=== PATIENT | male | born 1985 | race Caucasian/White ===

== ENCOUNTER 2020-07-16 01:37 | Emergency (ER) | payer MEDICAID ==
[~2020-07-16] VITALS: Ht 177.8 cm; Wt 70.0 kg
[2020-07-16] MEDS ORDERED: naloxone 2mg/2ml inj IV STA (01:47)
[2020-07-16 02:40] LABS: BASOPHILS % (AUTO) 0.3 % (0-1); EOSINOPHILS # (AUTO) 0.2 X10'3 (0-0.9); EOSINOPHILS % (AUTO) 2.3 % (0-6); HEMATOCRIT 42.4 % (42.0-52.0); HEMOGLOBIN 14.2 g/dl (14.0-17.9); LYMPHOCYTES # (AUTO) 1.4 X10'3 (1.1-4.8); LYMPHOCYTES % (AUTO) 19.1 % (21-51); MEAN CORPUSCULAR HEMOGLOBIN 31.6 PG (27.0-31.0); MEAN CORPUSCULAR HGB CONC 33.5 g/dL (33.0-36.5); MEAN CORPUSCULAR VOLUME 94.5 FL (78-98); MEAN PLATELET VOLUME 8.4 FL (7.4-10.4); MONOCYTES # (AUTO) 1.1 X10'3 (0-0.9); MONOCYTES % (AUTO) 14.4 % (2-12); NEUTROPHILS # (AUTO) 4.8 X10'3 (1.8-7.7); NEUTROPHILS % (AUTO) 63.9 % (42-75); PLATELET COUNT 236 X10'3 (140-440); RED BLOOD COUNT 4.49 X10'6 (4.70-6.10); RED CELL DISTRIBUTION WIDTH 12.9 % (11.5-14.5); WHITE BLOOD COUNT 7.5 X10'3 (4.5-11.0)
[2020-07-16 02:49] LABS: ALANINE AMINOTRANSFERASE 21 U/L (12-78); ALBUMIN 3.8 G/DL (3.4-5.0); ALKALINE PHOSPHATASE 81 IU/L (46-116); ANION GAP 9 (8-16); ASPARTATE AMINO TRANSFERASE 18 U/L (10-37); BILIRUBIN,TOTAL 0.3 MG/DL (0.1-1.0); BLOOD UREA NITROGEN 18 MG/DL (7-18); BUN/CREATININE RATIO 13.1 (5.4-32.0); CALCIUM 9.3 MG/DL (8.5-10.1); CHLORIDE 104 MMOL/L (99-107); CREATININE 1.37 MG/DL (0.60-1.10); GLUCOSE 127 MG/DL (70-104); SODIUM 142 MMOL/L (135-145); TOTAL CARBON DIOXIDE 29.3 MMOL/L (24-32); TOTAL PROTEIN 7.5 G/DL (6.4-8.2); eGFR 58 ML/MIN
[2020-07-16 03:04] LABS: ACETAMINOPHEN < 2.0 UG/ML (10-30); ETHANOL < 0.010 GM/DL (0.0-0.010)
[2020-07-16 03:43] VITALS: BP 111/65
== END 2020-07-16 04:02 | disposition home or self-care (01) ==
LOC: ER 01:38
DX: T40.1X1A Poisoning by heroin, accidental (unintentional), initial encounter (principal); R94.6 Abnormal results of thyroid function studies; Z72.89 Other problems related to lifestyle; Y92.89 Other specified places as the place of occurrence of the external cause
CPT/HCPCS: 36415; 80053; 80320; 80329; 84443; 85025; 99283

== ENCOUNTER 2020-10-11 13:26 | Emergency (ER) | payer MEDICAID ==
[~2020-10-11] VITALS: Ht 182.9 cm; Wt 70.5 kg
[2020-10-11 13:49] VITALS: BP 134/84
== END 2020-10-11 13:56 ==
LOC: ER 13:27
DX: Z02.89 Encounter for other administrative examinations (principal); F15.129 Other stimulant abuse with intoxication, unspecified; F17.200 Nicotine dependence, unspecified, uncomplicated; Z72.89 Other problems related to lifestyle; V87.7XXA Person injured in collision between other specified motor vehicles (traffic), initial encounter; Y93.89 Activity, other specified; Y92.89 Other specified places as the place of occurrence of the external cause; Y99.8 Other external cause status
CPT/HCPCS: 99283

== ENCOUNTER 2020-12-14 00:32 | Emergency (ER) | payer MEDICAID ==
[~2020-12-14] VITALS: Ht 180.3 cm; Wt 70.0 kg
[2020-12-14] MEDS ORDERED: normal saline 1000ML IV soln IV ONE (00:40)
[2020-12-14 01:26] LABS: BASOPHILS % (AUTO) 0.2 % (0-1); EOSINOPHILS # (AUTO) 0.1 X10'3 (0-0.9); EOSINOPHILS % (AUTO) 0.5 % (0-6); HEMATOCRIT 22.6 % (42.0-52.0); HEMOGLOBIN 7.7 g/dl (14.0-17.9); LYMPHOCYTES # (AUTO) 0.9 X10'3 (1.1-4.8); MEAN CORPUSCULAR HEMOGLOBIN 30.8 PG (27.0-31.0); MEAN CORPUSCULAR HGB CONC 34.3 g/dL (33.0-36.5); MEAN CORPUSCULAR VOLUME 89.9 FL (78-98); MEAN PLATELET VOLUME 7.6 FL (7.4-10.4); MONOCYTES # (AUTO) 1.7 X10'3 (0-0.9); MONOCYTES % (AUTO) 14.5 % (2-12); NEUTROPHILS # (AUTO) 9.1 X10'3 (1.8-7.7); NEUTROPHILS % (AUTO) 76.8 % (42-75); PLATELET COUNT 569 X10'3 (140-440); RED BLOOD COUNT 2.51 X10'6 (4.70-6.10); RED CELL DISTRIBUTION WIDTH 14.8 % (11.5-14.5); WHITE BLOOD COUNT 11.8 X10'3 (4.5-11.0)
[2020-12-14 01:40] LABS: ALANINE AMINOTRANSFERASE 54 U/L (12-78); ALBUMIN 1.9 G/DL (3.4-5.0); ALBUMIN/GLOBULIN RATIO 0.5 (1.1-1.5); ALKALINE PHOSPHATASE 81 IU/L (46-116); ANION GAP 7 (8-16); ASPARTATE AMINO TRANSFERASE 82 U/L (10-37); BILIRUBIN,TOTAL 0.4 MG/DL (0.1-1.0); BLOOD UREA NITROGEN 14 MG/DL (7-18); BUN/CREATININE RATIO 13.7 (5.4-32.0); CALCIUM 7.3 MG/DL (8.5-10.1); CHLORIDE 102 MMOL/L (99-107); CREATININE 1.02 MG/DL (0.60-1.10); ETHANOL < 0.010 GM/DL (0.0-0.010); GLUCOSE 120 MG/DL (70-104); POTASSIUM 4.1 MMOL/L (3.5-5.1); SODIUM 135 MMOL/L (135-145); TOTAL CARBON DIOXIDE 25.7 MMOL/L (24-32); eGFR 82 ML/MIN
[2020-12-14 03:39] VITALS: BP 103/67
[2020-12-14] MEDS ORDERED: HYDR-3965 PO (04:19)
== END 2020-12-14 04:34 | disposition home or self-care (01) ==
LOC: ER 00:32
DX: T81.9XXA Unspecified complication of procedure, initial encounter (principal); R71.0 Precipitous drop in hematocrit; D64.89 Other specified anemias; F15.10 Other stimulant abuse, uncomplicated; Z20.822 Contact with and (suspected) exposure to COVID-19
CPT/HCPCS: 36415; 80053; 80320; 83605; 84145; 85025; 87040; 87635; 93005; 99284; C9803; J7030

== ENCOUNTER 2021-02-21 05:53 | Inpatient (IN) | payer MEDICAID ==
[~2021-02-21] VITALS: Ht 175.3 cm; Wt 75.0 kg
[2021-02-21] VITALS (24 sets, daily range): BP systolic 92–116; BP diastolic 48–69
[2021-02-21] MEDS ORDERED: metroNIDAZOLE-Flagyl 500mg/NS 100 ML IV STA (06:11)
[2021-02-21] MEDS ORDERED: morphine 10mg/ml inj. IV ONE (06:15)
[2021-02-21] MEDS ORDERED: VANCOMYCIN 1,500MG inj. 1,500 MG in normal saline 500ml IV soln 300 ML IV ONE (06:15)
[2021-02-21] MEDS ORDERED: cefepime 1GM/NS ADD-VANTAGE 100 ML IV ONE (06:15)
[2021-02-21] MEDS ORDERED: normal saline 1000ml 1,000 ML IV ONE (06:15)
[2021-02-21] MEDS ORDERED: cefepime 1GM in D5W 50mL 50 ML IV ONE (06:17)
[2021-02-21 06:35] LABS: EOSINOPHILS # (AUTO) 0.1 X10'3 (0-0.9); HEMOGLOBIN 7.8 g/dl (14.0-17.9); LYMPHOCYTES # (AUTO) 2.3 X10'3 (1.1-4.8); MEAN PLATELET VOLUME 6.9 FL (7.4-10.4); MONOCYTES # (AUTO) 2.7 X10'3 (0-0.9); MONOCYTES % (AUTO) 9.1 % (2-12); RED CELL DISTRIBUTION WIDTH 16.8 % (11.5-14.5)
[2021-02-21 06:38] LABS: BASOPHILS # (AUTO) 0.1 X10'3 (0-0.2); BASOPHILS % (AUTO) 0.2 % (0-1); EOSINOPHILS % (AUTO) 0.5 % (0-6); HEMATOCRIT 24.1 % (42.0-52.0); LYMPHOCYTES % (AUTO) 7.9 % (21-51); MEAN CORPUSCULAR HEMOGLOBIN 26.9 PG (27.0-31.0); MEAN CORPUSCULAR HGB CONC 32.3 g/dL (33.0-36.5); MEAN CORPUSCULAR VOLUME 83.3 FL (78-98); NEUTROPHILS # (AUTO) 24.1 X10'3 (1.8-7.7); NEUTROPHILS % (AUTO) 82.3 % (42-75); PLATELET COUNT 818 X10'3 (140-440); RED BLOOD COUNT 2.89 X10'6 (4.70-6.10)
[2021-02-21 06:44] LABS: WHITE BLOOD COUNT 29.2 X10'3 (4.5-11.0)
[2021-02-21 06:53] LABS: ALANINE AMINOTRANSFERASE 13 U/L (12-78); ALBUMIN 1.8 G/DL (3.4-5.0); ALBUMIN/GLOBULIN RATIO 0.4 (1.1-1.5); ALKALINE PHOSPHATASE 73 IU/L (46-116); ANION GAP 6 (8-16); ASPARTATE AMINO TRANSFERASE 12 U/L (10-37); BILIRUBIN,TOTAL 0.1 MG/DL (0.1-1.0); BLOOD UREA NITROGEN 13 MG/DL (7-18); BUN/CREATININE RATIO 13.1 (5.4-32.0); CHLORIDE 103 MMOL/L (99-107); CREATININE 0.99 MG/DL (0.60-1.10); GLUCOSE 172 MG/DL (70-104); POTASSIUM 4.4 MMOL/L (3.5-5.1); SODIUM 135 MMOL/L (135-145); TOTAL CARBON DIOXIDE 26.1 MMOL/L (24-32); TOTAL PROTEIN 5.9 G/DL (6.4-8.2); eGFR 85 ML/MIN
[2021-02-21 07:09] LABS: ETHANOL < 0.010 GM/DL (0.0-0.010); MAGNESIUM 1.8 MG/DL (1.5-2.4)
[2021-02-21 07:14] LABS: APTT 26 SECONDS (22-32)
[2021-02-21] MEDS ORDERED: iohexol 350MG/ML 100ml bottle IV ONE (07:25)
[2021-02-21 07:49] LABS: ANISOCYTOSIS 1+; PLATELET ESTIMATE INCREASED; TOTAL CELLS COUNTED 100
[2021-02-21 12:05] LABS: URINE AMPHETAMINE SCREEN POSITIVE (Neg); URINE BARBITUATE SCREEN NEGATIVE (Neg); URINE BENZODIAZEPINES SCREEN NEGATIVE (Neg); URINE CANNABINOID SCREEN POSITIVE (Neg); URINE COCAINE SCREEN NEGATIVE (Neg); URINE METHADONE SCREEN NEGATIVE (Neg); URINE OPIATE SCREEN POSITIVE (Neg); URINE PHENCYCLIDINE SCREEN NEGATIVE (Neg)
[2021-02-21] MEDS ORDERED: fentaNYL/PF 50MCG/1 ML 2ML syringe ONE (12:06)
[2021-02-21] MEDS ORDERED: vancomycin 1,000mg inj ONE (12:42)
[2021-02-21] MEDS ORDERED: propofol inj 20 ML IV ONE (12:58)
[2021-02-21] MEDS ORDERED: rocuronium 10mg/ml inj IV ONE (12:59)
--- NOTE | 2021-02-21 13:10 | NUR ---
Received from OR via , accompanied by Anesthesiologist and report given by Anesthesiolgist. PATIENT WAKING UP , DENIES PAIN, V/S WNL, CSM INTACT, LARGE DRESSING AROUND RIGHT CALF CDI WITH +4 EDEMA AND DOPLAR PEDAL PULSES, WARM FOOT AND TOES WITH EATING DISORDER SPECIALIST<2SEC
[2021-02-21] MEDS ORDERED: magnesium 4gm in 100ml NS 100 ML IV PRN (13:55)
[2021-02-21] MEDS: cefepime 1GM in D5W 50mL 50 ML IV SCH ×2 (13:55→20:13)
[2021-02-21] MEDS ORDERED: morphine 2 MG/ML inj. syringe IV PRN (13:55)
[2021-02-21] MEDS ORDERED: HYDROcodone/acetaminophen 5mg/325mg tablet PO PRN (13:55)
[2021-02-21] MEDS ORDERED: bisacodyl 10mg suppository rectal RC PRN (13:55)
[2021-02-21] MEDS ORDERED: potassium Cl 20 mEq SR tablet PO PRN ×2 (13:55)
[2021-02-21] MEDS ORDERED: magnesium 2GM in 50ml NS 50 ML IV PRN (13:55)
[2021-02-21] MEDS ORDERED: acetaminophen 325mg tablet PO PRN ×2 (13:55)
[2021-02-21] MEDS ORDERED: acetaminophen 650mg rectal suppository RC PRN (13:55)
[2021-02-21] MEDS ORDERED: potassium CL 10mEq/100ml bag 100 ML IV PRN (13:55)
[2021-02-21] MEDS ORDERED: mag hydrox/Alum hydrox/simeth 30ml oral suspension PO PRN (13:55)
[2021-02-21] MEDS ORDERED: magnesium Cl slow-release 64mg tablet PO PRN (13:55)
[2021-02-21] MEDS ORDERED: ondansetron/PF 4mg/2ml inj IV PRN (13:55)
[2021-02-21] MEDS ORDERED: magnesium hydroxide 30ml (MOM) UD suspension PO PRN (13:55)
[2021-02-21 14:39] LABS: HEMOGLOBIN A1C 5.4 % (4.5-6.2)
--- NOTE | 2021-02-21 14:50 | NUR ---
PATIENT A&OX4 , DENIES PAIN, V/S WNL, CSM INTACT, LARGE DRESSING AROUND RIGHT CALF CDI WITH +4 EDEMA AND DOPPLAR PEDAL PULSES, WARM FOOT AND TOES WITH TICK ERADICATOR<2SEC, 18G LAC, PATIENT TAKEN TO 314 WITH ALL BELONGINGS AND HOOKED UP TO MONITORS IN ROOM AND REPORT GIVEN TO RN WHO HAS TAKEN OVER PATIENT CARE.
[2021-02-21 15:11] LABS: CLARITY,URINE CLEAR (Clear); COLOR,URINE YELLOW (Yellow); GLUCOSE, URINE NEGATIVE (Neg); KETONES,URINE NEGATIVE (Neg); LEUKOCYTE ESTERASE ,URINE NEGATIVE (Neg); NITRITES, URINE NEGATIVE (Neg); OCCULT BLOOD,URINE NEGATIVE (Neg); PROTEIN,URINE NEGATIVE (Neg); UROBILINOGEN,URINE 0.2 E.U/dL (0.2-1.0)
[2021-02-21] MEDS: normal saline 1000ml 1,000 ML IV SCH ×2 (15:12→21:55)
[2021-02-21 15:15] LABS: UA COLLECTION TYPE NON-SPECIFIED
[2021-02-21] MEDS: morphine 2 MG/ML inj. syringe IV PRN ×2 (15:17→21:16)
[2021-02-21] MEDS: vancomycin/NS 1 GM ADD-VANTAGE 250 ML IV SCH ×2 (15:44→23:11)
[2021-02-21] MEDS: clindamycin 600mg/D5W 50ml 50 ML IV SCH ×2 (17:20→21:18)
--- NOTE | 2021-02-21 18:35 | NUR ---
Patient in room MED 312. I have received report from Lorna DOE and had the opportunity to ask questions and assume patient care.
[2021-02-21] MEDS: K and/or MAG REPLACEMENT MC SCH (20:00)
[2021-02-21] MEDS ORDERED: FLU VACC QS2021-22(6MOS UP)/PF 60 MCG/0.5 ML SYRINGE IM ONE (20:00)
[2021-02-21] MEDS: HYDROcodone/acetaminophen 10/325mg tab PO PRN (20:07)
[2021-02-21] MEDS: docusate sod 100mg capsule PO SCH (20:10)
[2021-02-21] MEDS: heparin, porcine 5000 units/ml vial SQ SCH (20:13)
--- NOTE | 2021-02-21 20:15 | NUR ---
Patient does not want his flu shot at this time and said, "I have been poked with enough needles today."
[2021-02-22] VITALS (10 sets, daily range): BP systolic 101–120; BP diastolic 56–80
[2021-02-22] MEDS: HYDROcodone/acetaminophen 10/325mg tab PO PRN ×4 (00:25→12:21)
[2021-02-22] MEDS: morphine 2 MG/ML inj. syringe IV PRN ×4 (02:13→16:08)
[2021-02-22] MEDS: clindamycin 600mg/D5W 50ml 50 ML IV SCH ×4 (02:14→19:47)
[2021-02-22] MEDS: normal saline 1000ml 1,000 ML IV SCH ×3 (03:55→22:20)
--- NOTE | 2021-02-22 06:38 | NUR ---
Problems reprioritized. Patient report given, questions answered & plan of care reviewed with Maria Dolores DOE.
[2021-02-22 06:48] LABS: BASOPHILS # (AUTO) 0.1 X10'3 (0-0.2); BASOPHILS % (AUTO) 0.5 % (0-1); EOSINOPHILS # (AUTO) 0.1 X10'3 (0-0.9); EOSINOPHILS % (AUTO) 0.6 % (0-6); LYMPHOCYTES # (AUTO) 1.6 X10'3 (1.1-4.8); LYMPHOCYTES % (AUTO) 14.5 % (21-51); MEAN CORPUSCULAR HEMOGLOBIN 27.8 PG (27.0-31.0); MEAN CORPUSCULAR VOLUME 84.1 FL (78-98); MONOCYTES # (AUTO) 1.5 X10'3 (0-0.9); NEUTROPHILS # (AUTO) 7.5 X10'3 (1.8-7.7); NEUTROPHILS % (AUTO) 70.4 % (42-75); PLATELET COUNT 338 X10'3 (140-440); RED BLOOD COUNT 2.48 X10'6 (4.70-6.10); RED CELL DISTRIBUTION WIDTH 16.2 % (11.5-14.5); WHITE BLOOD COUNT 10.7 X10'3 (4.5-11.0)
[2021-02-22 07:03] LABS: HEMATOCRIT 20.9 % (42.0-52.0); HEMOGLOBIN 6.9 g/dl (14.0-17.9)
[2021-02-22 07:09] LABS: ALANINE AMINOTRANSFERASE 6 U/L (12-78); ALBUMIN 1.7 G/DL (3.4-5.0); ALBUMIN/GLOBULIN RATIO 0.5 (1.1-1.5); ALKALINE PHOSPHATASE 53 IU/L (46-116); ANION GAP 7 (8-16); ASPARTATE AMINO TRANSFERASE 7 U/L (10-37); BILIRUBIN,TOTAL 0.2 MG/DL (0.1-1.0); BLOOD UREA NITROGEN 8 MG/DL (7-18); BUN/CREATININE RATIO 9.6 (5.4-32.0); CALCIUM 7.8 MG/DL (8.5-10.1); CHLORIDE 103 MMOL/L (99-107); CHOL/HDL RATIO 2.5 (0.00-4.99); CHOLESTEROL 56 MG/DL (0-200); CREATININE 0.83 MG/DL (0.60-1.10); GLUCOSE 85 MG/DL (70-104); HDL CHOLESTEROL 22 MG/DL (35-60); LDL CHOLESTEROL 24 MG/DL (50-100); MAGNESIUM 1.7 MG/DL (1.5-2.4); PHOSPHORUS 3.7 MG/DL (2.3-4.5); POTASSIUM 3.7 MMOL/L (3.5-5.1); SODIUM 135 MMOL/L (135-145); TOTAL CARBON DIOXIDE 25.1 MMOL/L (24-32); TOTAL PROTEIN 5.1 G/DL (6.4-8.2); TRIGLYCERIDES 50 MG/DL (20-135); eGFR > 90 ML/MIN
[2021-02-22] MEDS: vancomycin/NS 1 GM ADD-VANTAGE 250 ML IV SCH ×2 (07:13→16:07)
[2021-02-22] MEDS: docusate sod 100mg capsule PO SCH ×2 (07:14→19:50)
[2021-02-22] MEDS: heparin, porcine 5000 units/ml vial SQ SCH ×2 (07:14→19:51)
--- NOTE | 2021-02-22 07:26 | NUR ---
PAGER ID: [phone] MESSAGE: Room 312, Raf Durán. Critical H/H 6.. Thanks, Maria Dolores [phone]
[2021-02-22] MEDS: K and/or MAG REPLACEMENT MC SCH ×2 (08:00→20:00)
[2021-02-22] MEDS: cefepime 1GM in D5W 50mL 50 ML IV SCH (09:34)
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
--- NOTE | 2021-02-22 11:52 | NUR ---
Met with patient in regards to substance use and to see if patient wanted any resources for treatment options. Patient said he would like outpatient resources so I gave him [facility] number to call and start that process and gave my number so he can call if he has any questions.
[2021-02-22] MEDS: CefTRIAXone 2gm/D5W 50ml BAG 50 ML IV SCH (13:50)
[2021-02-22] MEDS ORDERED: VANCOMYCIN LEVEL IV ONE (14:30)
[2021-02-22 15:52] LABS: BASOPHILS % (AUTO) 0.4 % (0-1); EOSINOPHILS # (AUTO) 0.1 X10'3 (0-0.9); EOSINOPHILS % (AUTO) 0.6 % (0-6); HEMATOCRIT 26.2 % (42.0-52.0); HEMOGLOBIN 8.6 g/dl (14.0-17.9); LYMPHOCYTES # (AUTO) 1.3 X10'3 (1.1-4.8); LYMPHOCYTES % (AUTO) 11.9 % (21-51); MEAN CORPUSCULAR HEMOGLOBIN 28.1 PG (27.0-31.0); MEAN CORPUSCULAR HGB CONC 32.8 g/dL (33.0-36.5); MEAN CORPUSCULAR VOLUME 85.7 FL (78-98); MEAN PLATELET VOLUME 7.1 FL (7.4-10.4); MONOCYTES # (AUTO) 1.4 X10'3 (0-0.9); MONOCYTES % (AUTO) 12.5 % (2-12); NEUTROPHILS # (AUTO) 8.4 X10'3 (1.8-7.7); NEUTROPHILS % (AUTO) 74.6 % (42-75); PLATELET COUNT 361 X10'3 (140-440); RED BLOOD COUNT 3.05 X10'6 (4.70-6.10); RED CELL DISTRIBUTION WIDTH 16.6 % (11.5-14.5); WHITE BLOOD COUNT 11.2 X10'3 (4.5-11.0)
--- NOTE | 2021-02-22 17:10 | NUR ---
Pt has been compliant most of the day with coaching. He will, however, use foul language and then rescind his words and apologize. He has had 2 visitors, Henna and Patrice. Patrice is his landlord/friend and Henna is his advocator. She has been with him for most of the day. Dressing on right leg was changed this AM as there was a lot of oozing. Pt tolerated well. Pt pulled out his PIV accidentally, another PIV was placed with the assistance of the PICC nurse d/t hard stick and pt only let us try once. Pt was transfused 1 unit of PRBC's - pt tolerated well. I have been trying to keep his pain at a good level with alternating morphine and norco. Dr Beverly is aware that the patient is in a lot of pain and will review his medications.
--- NOTE | 2021-02-22 17:18 | NUR ---
Pt refused complete 2 RN skin assessment
[2021-02-22] MEDS ORDERED: HYDROmorphone inj. 0.5 MG/0.5 ML DISP.SYRIN IV PRN (17:20)
[2021-02-22] MEDS: HYDROmorphone 1 mg/ml syringe IV PRN ×2 (17:32→22:14)
--- NOTE | 2021-02-22 18:10 | NUR ---
Patient in room MED 312. I have received report from NADER Whitten and had the opportunity to ask questions and assume patient care.
--- NOTE | 2021-02-22 18:46 | NUR ---
Problems reprioritized. Patient report given, questions answered & plan of care reviewed with NADER Valencia.
[2021-02-22] MEDS: oxyCODONE/APAP 10/325mg tablet PO PRN (19:50)
[2021-02-22] MEDS: lactobacillus rhamnosus 10,000 MMU CELLS/CAPSULE PO SCH (19:50)
[2021-02-22] MEDS: VANCOmycin 1250MG/NS 250ml Bag 250 ML IV SCH (22:20)
[2021-02-23] MEDS: clindamycin 600mg/D5W 50ml 50 ML IV SCH ×4 (03:03→19:16)
[2021-02-23 03:24] VITALS: BP 107/65
[2021-02-23] MEDS: HYDROmorphone 1 mg/ml syringe IV PRN ×5 (05:26→23:19)
[2021-02-23] MEDS: oxyCODONE/APAP 10/325mg tablet PO PRN (05:42)
--- NOTE | 2021-02-23 05:48 | NUR ---
IV was not intact when dilaudid was administered. Provided patient with percocet.
[2021-02-23] MEDS: normal saline 1000ml 1,000 ML IV SCH ×2 (05:55→13:25)
--- NOTE | 2021-02-23 06:13 | NUR ---
Problems reprioritized. Patient report given, questions answered & plan of care reviewed with NADER eVras.
--- NOTE | 2021-02-23 06:35 | NUR ---
Patient in room MED 312. I have received report from og gupta and had the opportunity to ask questions and assume patient care.
[2021-02-23] MEDS: JUVEN Smoothie Arginine/Glut./Ca2+Bmb (Juven 19.3pkt) 240ml cup PO SCH ×2 (07:30→17:30)
[2021-02-23 07:48] LABS: BASOPHILS % (AUTO) 0.5 % (0-1); EOSINOPHILS # (AUTO) 0.1 X10'3 (0-0.9); EOSINOPHILS % (AUTO) 0.8 % (0-6); HEMATOCRIT 24.2 % (42.0-52.0); HEMOGLOBIN 8.2 g/dl (14.0-17.9); LYMPHOCYTES # (AUTO) 1.1 X10'3 (1.1-4.8); LYMPHOCYTES % (AUTO) 14.9 % (21-51); MEAN CORPUSCULAR HEMOGLOBIN 28.9 PG (27.0-31.0); MEAN CORPUSCULAR HGB CONC 33.9 g/dL (33.0-36.5); MEAN CORPUSCULAR VOLUME 85.3 FL (78-98); MEAN PLATELET VOLUME 7.2 FL (7.4-10.4); MONOCYTES % (AUTO) 12.7 % (2-12); NEUTROPHILS # (AUTO) 5.5 X10'3 (1.8-7.7); NEUTROPHILS % (AUTO) 71.1 % (42-75); PLATELET COUNT 307 X10'3 (140-440); RED BLOOD COUNT 2.84 X10'6 (4.70-6.10); RED CELL DISTRIBUTION WIDTH 16.2 % (11.5-14.5); WHITE BLOOD COUNT 7.7 X10'3 (4.5-11.0)
[2021-02-23 08:00] VITALS: BP 100/76
[2021-02-23] MEDS: docusate sod 100mg capsule PO SCH ×2 (08:00→19:20)
[2021-02-23] MEDS: K and/or MAG REPLACEMENT MC SCH ×2 (08:00→19:18)
[2021-02-23 08:01] LABS: ALANINE AMINOTRANSFERASE 8 U/L (12-78); ALBUMIN 1.8 G/DL (3.4-5.0); ALBUMIN/GLOBULIN RATIO 0.5 (1.1-1.5); ALKALINE PHOSPHATASE 64 IU/L (46-116); ANION GAP 7 (8-16); ASPARTATE AMINO TRANSFERASE 10 U/L (10-37); BILIRUBIN,TOTAL 0.1 MG/DL (0.1-1.0); BLOOD UREA NITROGEN 7 MG/DL (7-18); BUN/CREATININE RATIO 8.8 (5.4-32.0); CALCIUM 8.1 MG/DL (8.5-10.1); CHLORIDE 105 MMOL/L (99-107); GLUCOSE 114 MG/DL (70-104); MAGNESIUM 1.9 MG/DL (1.5-2.4); PHOSPHORUS 3.8 MG/DL (2.3-4.5); POTASSIUM 3.9 MMOL/L (3.5-5.1); SODIUM 139 MMOL/L (135-145); TOTAL CARBON DIOXIDE 26.6 MMOL/L (24-32); TOTAL PROTEIN 5.7 G/DL (6.4-8.2); eGFR > 90 ML/MIN
[2021-02-23] MEDS: CefTRIAXone 2gm/D5W 50ml BAG 50 ML IV SCH (08:05)
[2021-02-23] MEDS: heparin, porcine 5000 units/ml vial SQ SCH ×2 (08:11→19:28)
[2021-02-23] MEDS: lactobacillus rhamnosus 10,000 MMU CELLS/CAPSULE PO SCH ×2 (08:11→19:16)
[2021-02-23] MEDS: VANCOmycin 1250MG/NS 250ml Bag 250 ML IV SCH ×3 (09:37→23:13)
[2021-02-23] MEDS ORDERED: oxyCODONE IR 5mg (immed. release) tablet PO PRN (12:05)
[2021-02-23] MEDS: gabapentin 100mg capsule PO SCH ×2 (12:52→21:31)
[2021-02-23] MEDS: oxyCODONE IR 5mg (immed. release) tablet PO PRN ×2 (16:15→21:31)
[2021-02-23 16:37] VITALS: BP 115/79
[2021-02-23 18:00] VITALS: BP 124/80
--- NOTE | 2021-02-23 18:25 | NUR ---
Patient in room MED 312. I have received report from ANNETTE DOE and had the opportunity to ask questions and assume patient care.
--- NOTE | 2021-02-23 18:43 | NUR ---
Problems reprioritized. Patient report given, questions answered & plan of care reviewed with bethany gupta
[2021-02-23] MEDS: diphenhydrAMINE 25mg capsule PO PRN (19:14)
[2021-02-23 22:00] VITALS: BP 131/79
[2021-02-23] MEDS ORDERED: VANCOMYCIN LEVEL IV ONE (22:30)
[2021-02-23] MEDS: Dakins solution (1/4 strength) 473ml solution TP SCH (23:26)
[2021-02-24] MEDS: normal saline 1000ml 1,000 ML IV SCH ×3 (00:03→12:49)
[2021-02-24] MEDS: oxyCODONE IR 5mg (immed. release) tablet PO PRN (02:14)
[2021-02-24] MEDS: clindamycin 600mg/D5W 50ml 50 ML IV SCH ×3 (02:15→14:39)
[2021-02-24 02:20] VITALS: BP 110/65
[2021-02-24] MEDS: HYDROmorphone 1 mg/ml syringe IV PRN ×2 (03:55→07:51)
--- NOTE | 2021-02-24 04:00 | NUR ---
WOUND DRESSING CHANGED -WET TO DRY/DAKINS/XEROFORM, ABD PADS, GAUZE DRESSING. PREMEDICATED PATIENT WITH DILAUDID. PATIENT TOLERATED WELL. WOUND HAS GRANULATING TISSUE. PATIENT EXPRESSED PAIN MANAGEMENT PROGRAM NOT SUFFICIENT FOR PAIN NEEDS.ALTERNATING DILAUDID AND OXYCODONE Q4 HRS. JOHAN
[2021-02-24 06:06] LABS: BASOPHILS % (AUTO) 0.4 % (0-1); EOSINOPHILS # (AUTO) 0.2 X10'3 (0-0.9); EOSINOPHILS % (AUTO) 2.4 % (0-6); HEMATOCRIT 27.5 % (42.0-52.0); HEMOGLOBIN 9.2 g/dl (14.0-17.9); LYMPHOCYTES # (AUTO) 1.3 X10'3 (1.1-4.8); LYMPHOCYTES % (AUTO) 20.5 % (21-51); MEAN CORPUSCULAR HEMOGLOBIN 28.8 PG (27.0-31.0); MEAN CORPUSCULAR HGB CONC 33.6 g/dL (33.0-36.5); MEAN CORPUSCULAR VOLUME 85.9 FL (78-98); MEAN PLATELET VOLUME 6.9 FL (7.4-10.4); MONOCYTES % (AUTO) 16.5 % (2-12); NEUTROPHILS # (AUTO) 3.8 X10'3 (1.8-7.7); NEUTROPHILS % (AUTO) 60.2 % (42-75); PLATELET COUNT 367 X10'3 (140-440); RED CELL DISTRIBUTION WIDTH 16.5 % (11.5-14.5); WHITE BLOOD COUNT 6.3 X10'3 (4.5-11.0)
--- NOTE | 2021-02-24 06:07 | NUR ---
Problems reprioritized. Patient report given, questions answered & plan of care reviewed with ANNETTE DOE.
[2021-02-24 06:53] LABS: ALANINE AMINOTRANSFERASE 9 U/L (12-78); ALBUMIN 2.1 G/DL (3.4-5.0); ALBUMIN/GLOBULIN RATIO 0.5 (1.1-1.5); ALKALINE PHOSPHATASE 67 IU/L (46-116); ANION GAP 9 (8-16); ASPARTATE AMINO TRANSFERASE 14 U/L (10-37); BILIRUBIN,TOTAL 0.1 MG/DL (0.1-1.0); BLOOD UREA NITROGEN 9 MG/DL (7-18); BUN/CREATININE RATIO 11.3 (5.4-32.0); CALCIUM 8.5 MG/DL (8.5-10.1); CHLORIDE 101 MMOL/L (99-107); GLUCOSE 99 MG/DL (70-104); MAGNESIUM 1.9 MG/DL (1.5-2.4); PHOSPHORUS 4.5 MG/DL (2.3-4.5); POTASSIUM 3.9 MMOL/L (3.5-5.1); SODIUM 136 MMOL/L (135-145); TOTAL CARBON DIOXIDE 26.3 MMOL/L (24-32); TOTAL PROTEIN 6.7 G/DL (6.4-8.2); eGFR > 90 ML/MIN
[2021-02-24 07:00] VITALS: BP 114/59
[2021-02-24 07:03] LABS: VANCOMYCIN,TROUGH 20.6 UG/ML (6.0-14.0)
[2021-02-24] MEDS: JUVEN Smoothie Arginine/Glut./Ca2+Bmb (Juven 19.3pkt) 240ml cup PO SCH ×2 (07:30→18:10)
[2021-02-24] MEDS: CefTRIAXone 2gm/D5W 50ml BAG 50 ML IV SCH (07:46)
[2021-02-24] MEDS: lactobacillus rhamnosus 10,000 MMU CELLS/CAPSULE PO SCH ×2 (07:50→19:28)
[2021-02-24] MEDS: gabapentin 100mg capsule PO SCH ×3 (07:50→19:29)
[2021-02-24] MEDS: heparin, porcine 5000 units/ml vial SQ SCH ×2 (07:50→19:28)
[2021-02-24] MEDS: docusate sod 100mg capsule PO SCH ×2 (07:53→19:31)
[2021-02-24] MEDS: K and/or MAG REPLACEMENT MC SCH ×2 (08:00→20:00)
[2021-02-24] MEDS ORDERED: naloxone 0.4 mg/ml inj IV PRN (08:55)
[2021-02-24] MEDS: meropenem inj 1 GM in normal saline 100ml IV soln 100 ML IV SCH ×2 (09:57→16:11)
[2021-02-24] MEDS: HYDROmorph./NS 0.2 mg/ml CADD 100 ML IV SCH ×8 (10:08→23:00)
[2021-02-24] MEDS: Dakins solution (1/4 strength) 473ml solution TP SCH ×2 (10:12→20:00)
[2021-02-24 11:00] VITALS: BP 125/81
[2021-02-24] MEDS: VANCOmycin 1250MG/NS 250ml Bag 250 ML IV SCH (17:56)
[2021-02-24 18:00] VITALS: BP 127/82
--- NOTE | 2021-02-24 18:11 | NUR ---
Problems reprioritized. Patient report given, questions answered & plan of care reviewed with DARIN DOE.
--- NOTE | 2021-02-24 18:12 | NUR ---
Patient in room MED 312. I have received report from ANNETTE DOE and had the opportunity to ask questions and assume patient care.
[2021-02-24] MEDS: diphenhydrAMINE 25mg capsule PO PRN (19:29)
[2021-02-24 22:00] VITALS: BP 128/90
--- NOTE | 2021-02-24 23:00 | NUR ---
PATIENTS IV INFILTRATED, PATIENT PULLED OUT. ATTEMPTED TO REGAIN IV ACCESS; PATIENT BELIGERENT, REFUSING ATTEMPTS AT ACCESS, PCU CHARGE ANDI ATTEMPTING IV, PATIENT REMAINS NON-COMPLIANT; CALLED RIDER TICKET WORKER MICHELLE TO ATTEMPT IV ACCES. PATIENT ON CADD PUMP, IV ABX ON HOLD UNTIL IV ACCESS OBTAINED. JOHAN DOE
[2021-02-25] MEDS: HYDROmorph./NS 0.2 mg/ml CADD 100 ML IV SCH ×11 (01:00→23:00)
[2021-02-25] MEDS: VANCOmycin 1250MG/NS 250ml Bag 250 ML IV SCH ×3 (01:21→18:28)
[2021-02-25] MEDS: meropenem inj 1 GM in normal saline 100ml IV soln 100 ML IV SCH ×3 (01:24→18:27)
[2021-02-25] MEDS: LORazepam 0.5 MG tablet PO PRN (01:30)
[2021-02-25 02:00] VITALS: BP 112/70
--- NOTE | 2021-02-25 03:00 | NUR ---
CADD PUMP OFF FOR SEVERAL HRS WHILE IV ACCESS WAS REOBTAINED. CHOLMES
--- NOTE | 2021-02-25 04:00 | NUR ---
DRESSING CHANGE WET TO DRY/DAKINS USED PER [place] ORDER.PATIENT TOLERATED WELL. JOHAN DOE
--- NOTE | 2021-02-25 06:07 | NUR ---
Problems reprioritized. Patient report given, questions answered & plan of care reviewed with KASSI DOE. Addendum: 02/25/21 at 0657 by Kassi Zelaya RN Problems reprioritized. Patient report given, questions answered & plan of care reviewed with ART DOE.
[2021-02-25] MEDS: JUVEN Smoothie Arginine/Glut./Ca2+Bmb (Juven 19.3pkt) 240ml cup PO SCH ×2 (07:30→17:30)
[2021-02-25 07:58] LABS: BASOPHILS % (AUTO) 0.4 % (0-1); EOSINOPHILS # (AUTO) 0.2 X10'3 (0-0.9); EOSINOPHILS % (AUTO) 2.4 % (0-6); HEMATOCRIT 28.4 % (42.0-52.0); HEMOGLOBIN 9.5 g/dl (14.0-17.9); LYMPHOCYTES # (AUTO) 1.1 X10'3 (1.1-4.8); LYMPHOCYTES % (AUTO) 17.4 % (21-51); MEAN CORPUSCULAR HEMOGLOBIN 28.5 PG (27.0-31.0); MEAN CORPUSCULAR HGB CONC 33.3 g/dL (33.0-36.5); MEAN CORPUSCULAR VOLUME 85.7 FL (78-98); MEAN PLATELET VOLUME 7.5 FL (7.4-10.4); MONOCYTES # (AUTO) 0.9 X10'3 (0-0.9); MONOCYTES % (AUTO) 13.8 % (2-12); NEUTROPHILS # (AUTO) 4.2 X10'3 (1.8-7.7); PLATELET COUNT 415 X10'3 (140-440); RED BLOOD COUNT 3.31 X10'6 (4.70-6.10); RED CELL DISTRIBUTION WIDTH 17.1 % (11.5-14.5); WHITE BLOOD COUNT 6.4 X10'3 (4.5-11.0)
[2021-02-25] MEDS: gabapentin 100mg capsule PO SCH ×2 (08:00→20:21)
[2021-02-25] MEDS: lactobacillus rhamnosus 10,000 MMU CELLS/CAPSULE PO SCH ×2 (08:00→20:21)
[2021-02-25] MEDS: Dakins solution (1/4 strength) 473ml solution TP SCH ×2 (08:00→20:19)
[2021-02-25] MEDS: K and/or MAG REPLACEMENT MC SCH ×2 (08:00→20:00)
[2021-02-25] MEDS: docusate sod 100mg capsule PO SCH ×2 (08:00→20:00)
[2021-02-25] MEDS: heparin, porcine 5000 units/ml vial SQ SCH ×2 (08:00→20:22)
[2021-02-25 08:10] LABS: ALANINE AMINOTRANSFERASE 11 U/L (12-78); ALBUMIN 2.3 G/DL (3.4-5.0); ALBUMIN/GLOBULIN RATIO 0.5 (1.1-1.5); ALKALINE PHOSPHATASE 80 IU/L (46-116); ANION GAP 9 (8-16); ASPARTATE AMINO TRANSFERASE 8 U/L (10-37); BILIRUBIN,TOTAL 0.2 MG/DL (0.1-1.0); BLOOD UREA NITROGEN 10 MG/DL (7-18); BUN/CREATININE RATIO 12.2 (5.4-32.0); CALCIUM 8.9 MG/DL (8.5-10.1); CHLORIDE 103 MMOL/L (99-107); CREATININE 0.82 MG/DL (0.60-1.10); GLUCOSE 89 MG/DL (70-104); MAGNESIUM 2.1 MG/DL (1.5-2.4); PHOSPHORUS 4.8 MG/DL (2.3-4.5); POTASSIUM 4.1 MMOL/L (3.5-5.1); SODIUM 140 MMOL/L (135-145); TOTAL CARBON DIOXIDE 28.4 MMOL/L (24-32); TOTAL PROTEIN 7.2 G/DL (6.4-8.2); eGFR > 90 ML/MIN
--- NOTE | 2021-02-25 09:49 | NUR ---
Reassessment: Pt continues on Regular diet w/ mostly 75-100% intake of meals and 100% of 2 out of 3 Jacob Smoothies which meets approximately 100% of est energy needs and 85% of est minimum protein needs. Will provide double protein BID to ensure protein needs are met. Pt noted to continue to have RLE pain and may need RLE amputation per MD note. LBM 02/24. Will continue to monitor Recs: 1. Continue Regular diet as tolerated; double protein BID 2. Jacob Smoothie BIDBD 3. Bowel care per rx 4. Scaled wt this admit, subsequent weekly wts Addendum: 02/25/21 at [address] Amended: Links added.
[2021-02-25] MEDS: normal saline 1000ml 1,000 ML IV SCH (10:15)
[2021-02-25] MEDS ORDERED: LORazepam 1 MG tablet PO PRN (13:55)
--- NOTE | 2021-02-25 18:35 | NUR ---
Problems reprioritized. Patient report given, questions answered & plan of care reviewed with ZAIDA DOE.
[2021-02-25 19:00] VITALS: BP 120/81
[2021-02-25] MEDS: Melatonin 3mg tablet PO SCH (20:21)
[2021-02-25 22:00] VITALS: BP 130/85
[2021-02-26] MEDS: normal saline 1000ml 1,000 ML IV SCH (00:15)
[2021-02-26] MEDS: VANCOmycin 1250MG/NS 250ml Bag 250 ML IV SCH ×3 (00:31→15:53)
[2021-02-26] MEDS: meropenem inj 1 GM in normal saline 100ml IV soln 100 ML IV SCH ×3 (00:31→19:19)
[2021-02-26] MEDS: HYDROmorph./NS 0.2 mg/ml CADD 100 ML IV SCH ×12 (01:00→23:00)
[2021-02-26 02:00] VITALS: BP 106/57
[2021-02-26 06:00] VITALS: BP 101/63
[2021-02-26] MEDS: JUVEN Smoothie Arginine/Glut./Ca2+Bmb (Juven 19.3pkt) 240ml cup PO SCH ×2 (07:30→21:00)
[2021-02-26 07:51] LABS: BASOPHILS % (AUTO) 0.5 % (0-1); EOSINOPHILS # (AUTO) 0.3 X10'3 (0-0.9); EOSINOPHILS % (AUTO) 4.5 % (0-6); HEMATOCRIT 26.3 % (42.0-52.0); HEMOGLOBIN 8.8 g/dl (14.0-17.9); LYMPHOCYTES # (AUTO) 1.2 X10'3 (1.1-4.8); LYMPHOCYTES % (AUTO) 19.4 % (21-51); MEAN CORPUSCULAR HEMOGLOBIN 28.9 PG (27.0-31.0); MEAN CORPUSCULAR HGB CONC 33.3 g/dL (33.0-36.5); MEAN CORPUSCULAR VOLUME 86.7 FL (78-98); MEAN PLATELET VOLUME 7.5 FL (7.4-10.4); MONOCYTES # (AUTO) 0.9 X10'3 (0-0.9); MONOCYTES % (AUTO) 14.8 % (2-12); NEUTROPHILS # (AUTO) 3.8 X10'3 (1.8-7.7); NEUTROPHILS % (AUTO) 60.8 % (42-75); PLATELET COUNT 360 X10'3 (140-440); RED BLOOD COUNT 3.03 X10'6 (4.70-6.10); RED CELL DISTRIBUTION WIDTH 17.1 % (11.5-14.5); WHITE BLOOD COUNT 6.3 X10'3 (4.5-11.0)
[2021-02-26] MEDS: Dakins solution (1/4 strength) 473ml solution TP SCH ×2 (08:00→20:00)
[2021-02-26] MEDS: K and/or MAG REPLACEMENT MC SCH ×2 (08:00→19:26)
[2021-02-26 08:14] LABS: ALANINE AMINOTRANSFERASE 14 U/L (12-78); ALBUMIN 2.1 G/DL (3.4-5.0); ALBUMIN/GLOBULIN RATIO 0.5 (1.1-1.5); ALKALINE PHOSPHATASE 75 IU/L (46-116); ANION GAP 6 (8-16); ASPARTATE AMINO TRANSFERASE 14 U/L (10-37); BILIRUBIN,TOTAL 0.1 MG/DL (0.1-1.0); BLOOD UREA NITROGEN 12 MG/DL (7-18); CALCIUM 8.7 MG/DL (8.5-10.1); CHLORIDE 105 MMOL/L (99-107); CREATININE 0.75 MG/DL (0.60-1.10); GLUCOSE 92 MG/DL (70-104); PHOSPHORUS 4.4 MG/DL (2.3-4.5); POTASSIUM 4.3 MMOL/L (3.5-5.1); SODIUM 141 MMOL/L (135-145); TOTAL CARBON DIOXIDE 29.7 MMOL/L (24-32); TOTAL PROTEIN 6.4 G/DL (6.4-8.2); eGFR > 90 ML/MIN
[2021-02-26] MEDS: gabapentin 100mg capsule PO SCH ×3 (08:35→21:03)
[2021-02-26] MEDS: docusate sod 100mg capsule PO SCH ×2 (08:35→21:02)
[2021-02-26] MEDS: lactobacillus rhamnosus 10,000 MMU CELLS/CAPSULE PO SCH ×2 (08:35→21:02)
[2021-02-26] MEDS: heparin, porcine 5000 units/ml vial SQ SCH ×2 (08:36→21:03)
[2021-02-26 11:00] VITALS: BP 108/64
[2021-02-26 15:00] VITALS: BP 113/74
[2021-02-26 18:00] VITALS: BP 117/72
[2021-02-26] MEDS: Melatonin 3mg tablet PO SCH (21:03)
[2021-02-27] MEDS: VANCOmycin 1250MG/NS 250ml Bag 250 ML IV SCH ×3 (00:12→16:54)
[2021-02-27] MEDS: HYDROmorph./NS 0.2 mg/ml CADD 100 ML IV SCH ×12 (01:00→23:00)
[2021-02-27] MEDS: meropenem inj 1 GM in normal saline 100ml IV soln 100 ML IV SCH ×4 (01:25→23:52)
--- NOTE | 2021-02-27 06:00 | NUR ---
Problems reprioritized. Patient report given, questions answered & plan of care reviewed with Kelby. Addendum: 02/27/21 at 0703 by Noé Alegre RN Amended: Links added.
[2021-02-27 06:15] LABS: BASOPHILS % (AUTO) 0.4 % (0-1); EOSINOPHILS # (AUTO) 0.3 X10'3 (0-0.9); EOSINOPHILS % (AUTO) 4.2 % (0-6); HEMOGLOBIN 8.9 g/dl (14.0-17.9); LYMPHOCYTES # (AUTO) 1.6 X10'3 (1.1-4.8); LYMPHOCYTES % (AUTO) 20.4 % (21-51); MEAN CORPUSCULAR HEMOGLOBIN 28.4 PG (27.0-31.0); MEAN CORPUSCULAR HGB CONC 32.9 g/dL (33.0-36.5); MEAN CORPUSCULAR VOLUME 86.3 FL (78-98); MEAN PLATELET VOLUME 7.1 FL (7.4-10.4); MONOCYTES # (AUTO) 0.9 X10'3 (0-0.9); PLATELET COUNT 410 X10'3 (140-440); RED BLOOD COUNT 3.13 X10'6 (4.70-6.10); RED CELL DISTRIBUTION WIDTH 17.1 % (11.5-14.5); WHITE BLOOD COUNT 7.9 X10'3 (4.5-11.0)
[2021-02-27 06:31] LABS: ALANINE AMINOTRANSFERASE 14 U/L (12-78); ALBUMIN 2.1 G/DL (3.4-5.0); ALBUMIN/GLOBULIN RATIO 0.5 (1.1-1.5); ALKALINE PHOSPHATASE 71 IU/L (46-116); ANION GAP 7 (8-16); ASPARTATE AMINO TRANSFERASE 14 U/L (10-37); BILIRUBIN,TOTAL 0.2 MG/DL (0.1-1.0); BLOOD UREA NITROGEN 12 MG/DL (7-18); BUN/CREATININE RATIO 15.6 (5.4-32.0); CALCIUM 8.8 MG/DL (8.5-10.1); CHLORIDE 104 MMOL/L (99-107); CREATININE 0.77 MG/DL (0.60-1.10); GLUCOSE 95 MG/DL (70-104); POTASSIUM 4.4 MMOL/L (3.5-5.1); SODIUM 139 MMOL/L (135-145); TOTAL CARBON DIOXIDE 27.7 MMOL/L (24-32); TOTAL PROTEIN 6.5 G/DL (6.4-8.2); eGFR > 90 ML/MIN
[2021-02-27] MEDS: CADD PCA waste documentation MC PRN (06:49)
[2021-02-27] MEDS: JUVEN Smoothie Arginine/Glut./Ca2+Bmb (Juven 19.3pkt) 240ml cup PO SCH ×2 (07:30→19:00)
[2021-02-27] MEDS: Dakins solution (1/4 strength) 473ml solution TP SCH ×2 (08:00→20:00)
[2021-02-27] MEDS: lactobacillus rhamnosus 10,000 MMU CELLS/CAPSULE PO SCH ×2 (08:16→20:12)
[2021-02-27] MEDS: heparin, porcine 5000 units/ml vial SQ SCH ×2 (08:16→20:13)
[2021-02-27] MEDS: gabapentin 100mg capsule PO SCH ×3 (08:16→21:55)
[2021-02-27] MEDS: docusate sod 100mg capsule PO SCH ×2 (08:17→20:12)
[2021-02-27] MEDS: K and/or MAG REPLACEMENT MC SCH ×2 (08:41→20:00)
[2021-02-27 08:42] VITALS: BP 111/69
[2021-02-27 11:11] VITALS: BP 115/66
[2021-02-27 17:00] VITALS: BP 106/59
[2021-02-27 19:00] VITALS: BP 112/71
[2021-02-27] MEDS: Melatonin 3mg tablet PO SCH (21:56)
[2021-02-27 22:00] VITALS: BP 112/70
[2021-02-28] MEDS: VANCOmycin 1250MG/NS 250ml Bag 250 ML IV SCH ×4 (01:00→23:36)
[2021-02-28] MEDS: HYDROmorph./NS 0.2 mg/ml CADD 100 ML IV SCH ×12 (01:00→23:00)
[2021-02-28] MEDS: normal saline 1000ml 1,000 ML IV SCH ×2 (01:25→08:39)
[2021-02-28 02:00] VITALS: BP 93/53
[2021-02-28 06:38] VITALS: BP 104/58
[2021-02-28 07:00] LABS: BASOPHILS % (AUTO) 0.5 % (0-1); EOSINOPHILS # (AUTO) 0.3 X10'3 (0-0.9); EOSINOPHILS % (AUTO) 3.8 % (0-6); HEMATOCRIT 28.1 % (42.0-52.0); HEMOGLOBIN 9.3 g/dl (14.0-17.9); LYMPHOCYTES # (AUTO) 1.4 X10'3 (1.1-4.8); LYMPHOCYTES % (AUTO) 16.9 % (21-51); MEAN CORPUSCULAR HEMOGLOBIN 28.8 PG (27.0-31.0); MEAN CORPUSCULAR VOLUME 87.3 FL (78-98); MEAN PLATELET VOLUME 7.3 FL (7.4-10.4); MONOCYTES # (AUTO) 0.9 X10'3 (0-0.9); MONOCYTES % (AUTO) 11.1 % (2-12); NEUTROPHILS # (AUTO) 5.8 X10'3 (1.8-7.7); NEUTROPHILS % (AUTO) 67.7 % (42-75); PLATELET COUNT 422 X10'3 (140-440); RED BLOOD COUNT 3.22 X10'6 (4.70-6.10); WHITE BLOOD COUNT 8.5 X10'3 (4.5-11.0)
--- NOTE | 2021-02-28 07:00 | NUR ---
Patient in room MED 312. I have received report from Tennille RN and had the opportunity to ask questions and assume patient care.
[2021-02-28] MEDS: JUVEN Smoothie Arginine/Glut./Ca2+Bmb (Juven 19.3pkt) 240ml cup PO SCH ×2 (07:30→17:30)
[2021-02-28 07:42] LABS: ALANINE AMINOTRANSFERASE 15 U/L (12-78); ALBUMIN 2.1 G/DL (3.4-5.0); ALBUMIN/GLOBULIN RATIO 0.5 (1.1-1.5); ALKALINE PHOSPHATASE 78 IU/L (46-116); ANION GAP 9 (8-16); ASPARTATE AMINO TRANSFERASE 10 U/L (10-37); BILIRUBIN,TOTAL 0.2 MG/DL (0.1-1.0); BLOOD UREA NITROGEN 11 MG/DL (7-18); BUN/CREATININE RATIO 17.2 (5.4-32.0); CALCIUM 8.6 MG/DL (8.5-10.1); CHLORIDE 106 MMOL/L (99-107); CREATININE 0.64 MG/DL (0.60-1.10); GLUCOSE 103 MG/DL (70-104); POTASSIUM 4.1 MMOL/L (3.5-5.1); SODIUM 141 MMOL/L (135-145); TOTAL CARBON DIOXIDE 26.4 MMOL/L (24-32); TOTAL PROTEIN 6.4 G/DL (6.4-8.2); eGFR > 90 ML/MIN
[2021-02-28] MEDS: K and/or MAG REPLACEMENT MC SCH ×2 (08:00→20:00)
[2021-02-28] MEDS: Dakins solution (1/4 strength) 473ml solution TP SCH ×2 (08:00→22:06)
[2021-02-28] MEDS: meropenem inj 1 GM in normal saline 100ml IV soln 100 ML IV SCH ×3 (08:39→23:36)
[2021-02-28] MEDS: gabapentin 100mg capsule PO SCH ×3 (08:39→20:53)
[2021-02-28] MEDS: lactobacillus rhamnosus 10,000 MMU CELLS/CAPSULE PO SCH ×2 (08:39→20:53)
[2021-02-28] MEDS: docusate sod 100mg capsule PO SCH ×2 (08:39→20:53)
[2021-02-28] MEDS: heparin, porcine 5000 units/ml vial SQ SCH ×2 (08:40→20:52)
[2021-02-28 11:00] VITALS: BP 109/66
--- NOTE | 2021-02-28 14:00 | NUR ---
Spoke to to Farzana in Wound care they will be here first thing in the morning to place wound vac on patient.
[2021-02-28 15:00] VITALS: BP 121/65
[2021-02-28 18:30] VITALS: BP 107/62
--- NOTE | 2021-02-28 18:30 | NUR ---
Problems reprioritized. Patient report given, questions answered & plan of care reviewed with Deanna DOE.
--- NOTE | 2021-02-28 18:30 | NUR ---
Patient in room MED 312. I have received report from NADER Miranda and had the opportunity to ask questions and assume patient care. Pt sitting up in bed eating dinner. noc complaints. Addendum: 02/28/21 at 1917 by Margret Patton RN Amended: Links added.
[2021-02-28] MEDS: Melatonin 3mg tablet PO SCH (20:53)
[2021-02-28 22:00] VITALS: BP 114/73
[2021-03-01] MEDS: HYDROmorph./NS 0.2 mg/ml CADD 100 ML IV SCH ×9 (01:00→17:00)
--- NOTE | 2021-03-01 05:00 | NUR ---
yana and prep done to jayda for angiogram this am. pt has been npo since midnight. Addendum: 03/01/21 at 0605 by Margret Patton RN Amended: Links added.
[2021-03-01 06:06] VITALS: BP 114/77
[2021-03-01 06:37] LABS: BASOPHILS # (AUTO) 0.1 X10'3 (0-0.2); BASOPHILS % (AUTO) 0.6 % (0-1); EOSINOPHILS # (AUTO) 0.3 X10'3 (0-0.9); EOSINOPHILS % (AUTO) 4.3 % (0-6); HEMOGLOBIN 9.6 g/dl (14.0-17.9); LYMPHOCYTES # (AUTO) 1.9 X10'3 (1.1-4.8); LYMPHOCYTES % (AUTO) 23.8 % (21-51); MEAN CORPUSCULAR HEMOGLOBIN 28.7 PG (27.0-31.0); MEAN CORPUSCULAR HGB CONC 33.1 g/dL (33.0-36.5); MEAN CORPUSCULAR VOLUME 86.8 FL (78-98); MEAN PLATELET VOLUME 7.6 FL (7.4-10.4); MONOCYTES # (AUTO) 0.8 X10'3 (0-0.9); MONOCYTES % (AUTO) 10.1 % (2-12); NEUTROPHILS % (AUTO) 61.2 % (42-75); PLATELET COUNT 458 X10'3 (140-440); RED BLOOD COUNT 3.34 X10'6 (4.70-6.10); RED CELL DISTRIBUTION WIDTH 17.6 % (11.5-14.5); WHITE BLOOD COUNT 8.1 X10'3 (4.5-11.0)
--- NOTE | 2021-03-01 06:41 | NUR ---
Problems reprioritized. Patient report given, questions answered & plan of care reviewed with NADER Salcido. Addendum: 03/01/21 at 0642 by Margret Patton RN Amended: Links added.
[2021-03-01 07:01] LABS: ALANINE AMINOTRANSFERASE 17 U/L (12-78); ALBUMIN 2.3 G/DL (3.4-5.0); ALBUMIN/GLOBULIN RATIO 0.5 (1.1-1.5); ALKALINE PHOSPHATASE 81 IU/L (46-116); ANION GAP 10 (8-16); ASPARTATE AMINO TRANSFERASE 14 U/L (10-37); BILIRUBIN,TOTAL 0.2 MG/DL (0.1-1.0); BLOOD UREA NITROGEN 9 MG/DL (7-18); BUN/CREATININE RATIO 11.5 (5.4-32.0); CHLORIDE 105 MMOL/L (99-107); CREATININE 0.78 MG/DL (0.60-1.10); GLUCOSE 101 MG/DL (70-104); POTASSIUM 4.3 MMOL/L (3.5-5.1); SODIUM 141 MMOL/L (135-145); TOTAL CARBON DIOXIDE 26.4 MMOL/L (24-32); TOTAL PROTEIN 6.9 G/DL (6.4-8.2); eGFR > 90 ML/MIN
--- NOTE | 2021-03-01 07:26 | NUR ---
RE: Raf Burrellman room 312 Pt needs Midline placement today and needs MD to sign consent. Please stop by [facility] and sign form. On counter top. Thank you Omari DOE [phone]
[2021-03-01] MEDS ORDERED: VANCOMYCIN LEVEL IV ONE (07:30)
[2021-03-01] MEDS ORDERED: LIDOcaine 1% 30ml preserv. free vial IJ STA (07:57)
[2021-03-01] MEDS: K and/or MAG REPLACEMENT MC SCH (08:00)
[2021-03-01 08:19] LABS: VANCOMYCIN,RANDOM 26.6 UG/ML
[2021-03-01] MEDS: heparin, porcine 5000 units/ml vial SQ SCH (09:39)
[2021-03-01] MEDS: gabapentin 100mg capsule PO SCH ×2 (09:40→13:28)
[2021-03-01] MEDS: docusate sod 100mg capsule PO SCH (09:40)
[2021-03-01] MEDS: LORazepam 0.5 MG tablet PO PRN (09:40)
[2021-03-01] MEDS: lactobacillus rhamnosus 10,000 MMU CELLS/CAPSULE PO SCH (09:40)
[2021-03-01] MEDS: meropenem inj 1 GM in normal saline 100ml IV soln 100 ML IV SCH ×2 (09:41→16:00)
[2021-03-01] MEDS: VANCOmycin 1250MG/NS 250ml Bag 250 ML IV SCH (09:41)
[2021-03-01] MEDS: JUVEN Smoothie Arginine/Glut./Ca2+Bmb (Juven 19.3pkt) 240ml cup PO SCH ×2 (09:41→17:30)
--- NOTE | 2021-03-01 09:53 | NUR ---
Reassessment: Pt currently NPO for angiogram per EMR though previously Pt on Regular diet w/ mostly 75-100% intake of meals w/ double protein BID. Limited documentation of Jacob Smoothie intake though ~50% avg intake. Overall meeting 100% of est energy and protein needs. Pt may ultimately need RLE amputation per MD note. LBM 02/28. Will continue to monitor Recs: 1. Continue Regular diet as tolerated; double protein BID 2. Jacob Smoothie BIDBD 3. Bowel care per rx 4. Scaled wt this admit, subsequent weekly wts Addendum: 03/01/21 at [address] Amended: Links added.
[2021-03-01] MEDS: Dakins solution (1/4 strength) 473ml solution TP SCH (10:00)
--- NOTE | 2021-03-01 12:38 | NUR ---
WOUND VAC EDUCATION PROVIDED BY WOUND CARE 1. Patient instructed to call the Wound Center or their Home Health Agency immediately if: * They notice a change in the color or amount of the fluid in the canister. * Their wound looks more red than usual or has a foul smell. * The skin around their wound looks reddened or irritated. * The dressing feels loose or appears to be loose. * They experience any increase or changes in their pain. * The alarm will not turn off. 2. Patient instructed that they should not be disconnected from suction for more than 2 hours at a time. * If they are not able to get the suction back on, they need to remove the dressing and take all of the foam out of the wound. * Then moisten sterile gauze with normal saline and place on/in the wound. * Change the dressing once a day until arrangements have been made to replace the wound vac dressing. 3. Patient instructed to turn the wound vac machine OFF and call 911 or go to the ED immediately if their canister fills rapidly with blood. 4. If any of these occur while in the hospital tell a nurse immediately. Addendum: 03/01/21 at 1239 by Sindy Buitrago RN Amended: Links added.
[2021-03-01 15:15] VITALS: BP 124/77
--- NOTE | 2021-03-01 17:55 | NUR ---
Attempted to call report to Gaetano was put on hols for 5 min then told Rn would call back.
--- NOTE | 2021-03-01 18:38 | NUR ---
I have received report from NADER Salcido and had the opportunity to ask questions and assume patient care. Awaiting to be picked up and transferred to [facility]
[2021-03-01] MEDS: CADD PCA waste documentation MC PRN (18:50)
--- NOTE | 2021-03-01 19:35 | NUR ---
Patient was picked up by [facility], wound vac was disconnected, Patient left with midline and PIV in place. Patient had a friend cotton picker operator some belongings. Report was called to Brigette at [facility].
[2021-03-02] MEDS ORDERED: vancomycin/NS 1 GM ADD-VANTAGE 250 ML IV SCH
[2021-03-02] MEDS ORDERED: VANCOMYCIN LEVEL IV ONE (23:30)
== END 2021-03-01 19:00 | DRG 710 ==
LOC: ER 05:53 → MED 3N 14:01
PROVIDERS: ADMIT Family Medicine; ATTEND Family Medicine
PROC: B42F1ZZ Computerized Tomography (CT Scan) of Right Lower Extremity Arteries using Low Osmolar Contrast (ICD-10-PCS; 2021-02-21)
PROC: 0LBN0ZZ Excision of Right Lower Leg Tendon, Open Approach (ICD-10-PCS; 2021-02-21)
PROC: 30233N1 Transfusion of Nonautologous Red Blood Cells into Peripheral Vein, Percutaneous Approach (ICD-10-PCS; principal; 2021-02-21 11:58)
DX: A41.9 Sepsis, unspecified organism (principal); R57.1 Hypovolemic shock; M72.6 Necrotizing fasciitis; Z20.822 Contact with and (suspected) exposure to COVID-19; F10.10 Alcohol abuse, uncomplicated; D62 Acute posthemorrhagic anemia; B95.61 Methicillin susceptible Staphylococcus aureus infection as the cause of diseases classified elsewhere; B95.62 Methicillin resistant Staphylococcus aureus infection as the cause of diseases classified elsewhere; B96.5 Pseudomonas (aeruginosa) (mallei) (pseudomallei) as the cause of diseases classified elsewhere; F32.A Depression, unspecified; F41.1 Generalized anxiety disorder; I70.201 Unspecified atherosclerosis of native arteries of extremities, right leg; F15.10 Other stimulant abuse, uncomplicated; M21.371 Foot drop, right foot; Z91.19 Patient's noncompliance with other medical treatment and regimen; Z28.21 Immunization not carried out because of patient refusal; Z88.0 Allergy status to penicillin
CPT/HCPCS: 36415; 36430; 36569; 73706; 80053; 80061; 80202; 80305; 80320; 81003; 83036; 83605; 83735; 84100; 84145; 85007; 85025; 85384; 85610; 85730; 86885; 86900; 86901; 86920; 87040; 87070; 87075; 87076; 87077; 87081; 87186; 87635; 93005; 93922; 97161; 97530; 99291; 99292; A4618; A6223; A6446; A7000; C9803; G0378; J0692; J0696; J1170; J1644; J2185; J2270; J2274; J2704; J3010; J3370; J3490; J7030; J7040; J7120; P9016; Q0163; Q9967

== ENCOUNTER 2022-01-15 22:33 | Emergency (ER) | payer MEDICAID ==
[~2022-01-15] VITALS: Ht 162.6 cm; Wt 68.2 kg
[2022-01-15 23:05] VITALS: BP 122/78
== END 2022-01-15 23:35 ==
LOC: ER 22:34
DX: S80.921A Unspecified superficial injury of right lower leg, initial encounter (principal); X58.XXXA Exposure to other specified factors, initial encounter; Y93.89 Activity, other specified; Y92.89 Other specified places as the place of occurrence of the external cause; Y99.8 Other external cause status
CPT/HCPCS: 99283; A6222; A6223; A6446

== ENCOUNTER 2022-06-15 17:23 | Emergency (ER) | payer MEDICAID, OTHER | END 2022-06-15 17:48 | disposition left against medical advice (07) | LOC: ER 17:24 | DX: Z00.00 Encounter for general adult medical examination without abnormal findings (principal); Z53.21 Procedure and treatment not carried out due to patient leaving prior to being seen by health care provider ==

== ENCOUNTER 2022-07-05 12:31 | Emergency (ER) | payer MEDICAID ==
[~2022-07-05] VITALS: Ht 180.3 cm; Wt 65.2 kg
[2022-07-05] MEDS ORDERED: CEPH-585 PO (13:20)
[2022-07-05] MEDS ORDERED: DOXY100C76 PO (13:20)
[2022-07-05 14:48] VITALS: BP 125/75
== END 2022-07-05 14:52 | disposition home or self-care (01) ==
LOC: ER 12:32
DX: L03.115 Cellulitis of right lower limb (principal); F15.90 Other stimulant use, unspecified, uncomplicated; F10.10 Alcohol abuse, uncomplicated; Z88.0 Allergy status to penicillin; Z79.899 Other long term (current) drug therapy; Y90.9 Presence of alcohol in blood, level not specified
CPT/HCPCS: 73610; 73630; 99284; A6446

== ENCOUNTER 2022-08-17 00:42 | Emergency (ER) | payer MEDICAID ==
[~2022-08-17] VITALS: Ht 177.8 cm; Wt 70.5 kg
[~2022-08-17 00:42] MED LIST: CEPH-585 PO
[2022-08-17] MEDS ORDERED: vancomycin/NS 1 GM ADD-VANTAGE 250 ML IV STA (03:26)
--- NOTE | 2022-08-17 04:23 | NUR ---
Adam barrientos in ED - 08/17/22 at 0424 by TACOS he refuses to let the MD start an IV. He will leave AMA with dc meds.
--- NOTE | 2022-08-17 04:24 | NUR ---
no prescription, just AMA
[2022-08-17] MEDS ORDERED: piperacillin/tazo 3.375gm/50ml 50 ML IV STA (04:41)
[2022-08-17 04:56] LABS: BASOPHILS % (AUTO) 0.4 % (0-1); EOSINOPHILS # (AUTO) 0.2 X10'3 (0-0.9); HEMATOCRIT 40.1 % (42.0-52.0); LYMPHOCYTES # (AUTO) 1.5 X10'3 (1.1-4.8); MEAN CORPUSCULAR HEMOGLOBIN 29.5 PG (27.0-31.0); MEAN CORPUSCULAR HGB CONC 32.4 g/dL (33.0-36.5); MEAN CORPUSCULAR VOLUME 91.2 FL (78-98); MEAN PLATELET VOLUME 8.3 FL (7.4-10.4); MONOCYTES # (AUTO) 0.6 X10'3 (0-0.9); MONOCYTES % (AUTO) 9.1 % (2-12); NEUTROPHILS # (AUTO) 3.8 X10'3 (1.8-7.7); NEUTROPHILS % (AUTO) 61.5 % (42-75); PLATELET COUNT 300 X10'3 (140-440); RED CELL DISTRIBUTION WIDTH 13.9 % (11.5-14.5); WHITE BLOOD COUNT 6.2 X10'3 (4.5-11.0)
[2022-08-17 05:09] LABS: ALANINE AMINOTRANSFERASE 14 U/L (12-78); ALBUMIN 3.4 G/DL (3.4-5.0); ALBUMIN/GLOBULIN RATIO 0.8 (1.1-1.5); ALKALINE PHOSPHATASE 84 IU/L (46-116); ANION GAP 7 (8-16); ASPARTATE AMINO TRANSFERASE 17 U/L (10-37); BILIRUBIN,TOTAL 0.2 MG/DL (0.1-1.0); BLOOD UREA NITROGEN 21 MG/DL (7-18); BUN/CREATININE RATIO 21.9 (10.0-20.0); CALCIUM 8.9 MG/DL (8.5-10.1); CHLORIDE 105 MMOL/L (99-107); CREATININE 0.96 MG/DL (0.60-1.10); GLUCOSE 89 MG/DL (70-104); POTASSIUM 4.1 MMOL/L (3.5-5.1); SODIUM 142 MMOL/L (135-145); TOTAL CARBON DIOXIDE 30.2 MMOL/L (24-32); TOTAL PROTEIN 7.6 G/DL (6.4-8.2); eGFR 87 ML/MIN
[2022-08-17] MEDS ORDERED: magnesium hydroxide 30ml (MOM) UD suspension PO PRN (05:40)
[2022-08-17] MEDS ORDERED: magnesium Cl slow-release 64mg tablet PO PRN (05:40)
[2022-08-17] MEDS ORDERED: HYDROcodone/acetaminophen 10/325mg tab PO PRN (05:40)
[2022-08-17] MEDS ORDERED: ondansetron/PF 4mg/2ml inj IV PRN (05:40)
[2022-08-17] MEDS ORDERED: potassium Cl 20 mEq SR tablet PO PRN ×2 (05:40)
[2022-08-17] MEDS ORDERED: morphine 2 MG/ML inj. syringe IV PRN (05:40)
[2022-08-17] MEDS ORDERED: acetaminophen 325mg tablet PO PRN (05:40)
[2022-08-17] MEDS ORDERED: magnesium 4gm in 100ml NS 100 ML IV PRN (05:40)
[2022-08-17] MEDS ORDERED: potassium Cl 40MEQ/1/2NS 520ml 520 ML IV PRN (05:40)
[2022-08-17] MEDS ORDERED: HYDROcodone/acetaminophen 5mg/325mg tablet PO PRN (05:40)
[2022-08-17] MEDS ORDERED: mag hydrox/Alum hydrox/simeth 30ml oral suspension PO PRN (05:40)
[2022-08-17] MEDS ORDERED: magnesium 2GM in 50ml NS 50 ML IV PRN (05:40)
[2022-08-17] MEDS ORDERED: SULF1TAB49 PO (06:30)
[2022-08-17] MEDS ORDERED: CEPH-585 PO (06:30)
[2022-08-17 06:49] VITALS: BP 119/81
[2022-08-17] MEDS ORDERED: enoxaparin 40mg/0.4ml syringe SUBCUT SCH (08:00)
[2022-08-17] MEDS ORDERED: docusate sod 100mg capsule PO SCH (08:00)
[2022-08-17] MEDS ORDERED: K and/or MAG REPLACEMENT MC SCH (08:00)
[2022-08-17] MEDS ORDERED: piperacillin/tazo 3.375gm/50ml 50 ML IV SCH (12:00)
[2022-08-17] MEDS ORDERED: VANCOmycin 1250MG/NS 250ml Bag 250 ML IV SCH (15:00)
== END 2022-08-17 06:57 | disposition home or self-care (01) ==
LOC: ER 00:43
DX: L03.115 Cellulitis of right lower limb (principal); F15.20 Other stimulant dependence, uncomplicated; Z88.0 Allergy status to penicillin
CPT/HCPCS: 36415; 71045; 80053; 83605; 84145; 85025; 87040; 96365; 96366; 96368; 99284; J2543; J3370; A6449

== ENCOUNTER 2022-09-26 11:56 | Emergency (ER) | payer MEDICAID ==
[~2022-09-26] VITALS: Ht 180.3 cm; Wt 68.0 kg
[2022-09-26 12:09] VITALS: BP 126/76; PULSE 58; RESP 16; TEMP 98; O2SAT 100
== END 2022-09-26 12:58 | disposition home or self-care (01) ==
LOC: ER 11:56
DX: L98.498 Non-pressure chronic ulcer of skin of other sites with other specified severity (principal); F17.200 Nicotine dependence, unspecified, uncomplicated; F15.10 Other stimulant abuse, uncomplicated; Z88.0 Allergy status to penicillin; Z79.1 Long term (current) use of non-steroidal anti-inflammatories (NSAID); Z79.2 Long term (current) use of antibiotics
CPT/HCPCS: 99283; A6222; A6223; A6449

== ENCOUNTER 2024-08-07 19:22 | Emergency (ER) | payer MEDICAID ==
[~2024-08-07] VITALS: Ht 180.3 cm; Wt 55.1 kg
[2024-08-07 19:33] VITALS: BP 138/85; PULSE 112; RESP 15; TEMP 96.8; O2SAT 99
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
== END 2024-08-07 21:04 | disposition left against medical advice (07) ==
LOC: ER 19:23
DX: M79.604 Pain in right leg (principal); Z53.21 Procedure and treatment not carried out due to patient leaving prior to being seen by health care provider; Z88.0 Allergy status to penicillin

== ENCOUNTER 2024-12-10 12:01 | Emergency (ER) | payer MEDICAID, OTHER ==
[~2024-12-10] VITALS: Ht 177.8 cm; Wt 68.2 kg
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
[2024-12-10 13:05] VITALS: BP 109/73; PULSE 87; RESP 18; O2SAT 100
[2024-12-10] MEDS ORDERED: SULF-14 PO (13:35)
[2024-12-10] MEDS ORDERED: CEPH-585 PO (13:35)
[2024-12-10] MEDS ORDERED: MUPI22OI30 TOP (13:35)
[2024-12-10 13:50] VITALS: TEMP 97.7
== END 2024-12-10 13:55 ==
LOC: ER 12:01 → EEVIPCON 12:01 → ER 13:55
DX: L03.115 Cellulitis of right lower limb (principal); F15.90 Other stimulant use, unspecified, uncomplicated; F10.10 Alcohol abuse, uncomplicated; Y90.9 Presence of alcohol in blood, level not specified; Z56.0 Unemployment, unspecified; Z88.0 Allergy status to penicillin
CPT/HCPCS: 99283; A6258; A6446; A6449